=== PATIENT | female | born 1990 ===

== ENCOUNTER 2019-08-18 18:41 | Emergency (ER) | payer OTHER ==
[~2019-08-18] VITALS: Ht 162.6 cm; Wt 63.6 kg
[2019-08-18] MEDS ORDERED: ACETAMINOPHEN 500 MG TABLET PO ONE (20:45)
[2019-08-18 21:00] VITALS: BP 125/86
== END 2019-08-18 22:00 | disposition home or self-care (01) ==
LOC: EMS 18:41
DX: S62.622A Displaced fracture of middle phalanx of right middle finger, initial encounter for closed fracture (principal); Y04.0XXA Assault by unarmed brawl or fight, initial encounter; Y93.89 Activity, other specified; Y92.89 Other specified places as the place of occurrence of the external cause; Y99.8 Other external cause status